=== PATIENT | male | born 1955 | race Caucasian/White ===

== ENCOUNTER → 2020-10-09 | Day surgery (SDC) | payer BC, MEDICARE ==
[~2020-10-09] MED LIST: Ketamine 200 MG/20 ML MDV ONE; Lactated Ringers 1,000 ML IV SCH; Lidocaine 2% 5 ML SDV ONE; Phenylephrine 1% 10 MG/ML SDV ONE; Propofol 200 MG/20 ML SDV ONE; fentaNYL 100 MCG/2 ML SDV ONE
--- NOTE | 2020-10-09 14:24 | OR ---
DATE OF OPERATION: 10/09/2020 PREOPERATIVE DIAGNOSIS: HISTORY OF POLYPS. POSTOPERATIVE DIAGNOSIS: HISTORY OF POLYPS. SURGEON: Bill Richards MD PROCEDURE: FULL-LENGTH COLONOSCOPY WITH SNARE POLYPECTOMY X2. ANESTHESIA: MAC. COMPLICATIONS: None. SPECIMEN: Two large villous polyps, see report. FINDINGS: 1. Full-length colonoscopy. 2. A 6 mm villous adenoma, proximal transverse colon. 3. A 1 cm tubulovillous lesion, rectal vault. RECOMMENDATIONS: Followup colonoscopy in 2 years pending path report. INDICATIONS: The patient is a 65-year-old with a history of polyps removed in the past. He had a large villous lesion removed out of his rectum back in 2009 I believe. He had a 1-year followup and then was I believe supposed to have a followup in around 2013 or 2014. He is overdue for that. DESCRIPTION OF PROCEDURE: The patient was prepped and draped, placed in the left lateral decubitus position. A lubricated Olympus colonoscope was inserted and easily advanced to the splenic flexure where the patient was very closed off. At that point, we had to move him onto his back and finally easily traversed to the cecum. The bowel prep was excellent. We were able to directly visualize the ileocecal valve and appendiceal orifice. Upon withdrawal, the cecum and ascending colon appeared benign. In the proximal transverse colon, the patient had a 6 to 7 mm villous polyp along the haustral fold. We were able to remove it with a snare for the most part in its entirety. We suctioned that into polyp trap #1. We did 4 small edge biopsies with forceps to ensure removal completely. The rest of the transverse colon was benign as was the descending area. Throughout the sigmoid area, the patient had no polyps, masses, ulceration, or bleeding sites. No vascular abnormalities or signs of colitis. There were no significant diverticula. Right in the mid rectal vault, the patient again had a tubulovillous polyp about a cm in size. We removed it with a snare and pulled it out through the rectum without problem. Retroflexion of the scope in the rectal vault showed no perianal lesions. Air was suctioned and the scope removed without complication. HARRY/JODI /[id number]
== END ==
LOC: CC.SDS 08:45
PROVIDERS: ATTEND Family Medicine
DX: Z12.11 Encounter for screening for malignant neoplasm of colon (principal); D12.3 Benign neoplasm of transverse colon; D12.8 Benign neoplasm of rectum; I10 Essential (primary) hypertension; E78.2 Mixed hyperlipidemia; Z88.0 Allergy status to penicillin; Z86.010 Personal history of colon polyps; Z01.812 Encounter for preprocedural laboratory examination; Z20.822 Contact with and (suspected) exposure to COVID-19
CPT/HCPCS: 00812; 45385; 88305; J2370; J2704; J3010; J7120

== ENCOUNTER → 2023-01-06 | Day surgery (SDC) | payer MEDICARE ==
[~2023-01-06] MED LIST changes: -Lidocaine 2% 5 ML SDV ONE; +Naloxone 2 MG/2 ML Syringe ONE; -fentaNYL 100 MCG/2 ML SDV ONE; +fentaNYL 50 MCG/ML SDV ONE
== END ==
LOC: CC.SDS 10:28
PROVIDERS: ATTEND Family Medicine
DX: Z12.11 Encounter for screening for malignant neoplasm of colon (principal); D12.3 Benign neoplasm of transverse colon; K63.5 Polyp of colon; K57.30 Diverticulosis of large intestine without perforation or abscess without bleeding; K64.9 Unspecified hemorrhoids; Z86.010 Personal history of colon polyps
CPT/HCPCS: 00811; 88305; J2310; J2370; J2704; J3010; J3490; J7120